=== PATIENT | male | born 1975 | race Caucasian/White ===

== ENCOUNTER → 2017-07-30 | Outpatient (REF) | payer MEDICARE, MEDICAID ==
[2017-07-31 11:16] LABS: HEPATITIS B SURFACE ANTIBODY POSITIVE (POSITIVE)
== END ==
LOC: M LAB REF 17:39
DX: Z11.8 Encounter for screening for other infectious and parasitic diseases (principal)
CPT/HCPCS: 86706

== ENCOUNTER → 2019-01-15 | Outpatient (REF) | payer MEDICARE, MEDICAID | LOC: M LAB REF 12:26 | PROVIDERS: ATTEND Internal Medicine | DX: E07.9 Disorder of thyroid, unspecified (principal) ==

== ENCOUNTER → 2020-01-07 | Outpatient (REF) | payer BC, MEDICARE | LOC: M LAB REF 11:16 | PROVIDERS: ATTEND Internal Medicine | DX: K13.79 Other lesions of oral mucosa (principal) ==

== ENCOUNTER 2023-03-28 08:53 | Day surgery (SDC) | payer OTHER ==
[~2023-03-28] VITALS: Ht 175.3 cm; Wt 109.9 kg
[~2023-03-28 08:53] MED LIST: LIDOCAINE 2% 100MG/5ML SDV (FOR ANES.) As Ordered ONE; NS 1,000 ML IV ONE; QUET300T2 PO; TRAZ-257 PO; propofoL 200 MG/20 ML VIAL As Ordered ONE
[2023-03-28 11:11] VITALS: TEMP 96.8
[2023-03-28 11:30] VITALS: BP 131/71; O2SAT 100
== END 2023-03-28 11:40 | disposition home or self-care (01) ==
LOC: M OPP 08:53
PROVIDERS: ATTEND Internal Medicine Gastroenterology
DX: Z12.11 Encounter for screening for malignant neoplasm of colon (principal); Z80.0 Family history of malignant neoplasm of digestive organs; K63.5 Polyp of colon; K64.8 Other hemorrhoids; Z79.2 Long term (current) use of antibiotics; Z79.899 Other long term (current) drug therapy; Z88.8 Allergy status to other drugs, medicaments and biological substances; Z91.013 Allergy to seafood

== ENCOUNTER → 2023-10-11 | Outpatient (CLI) | payer OTHER ==
[~2023-10-11] MED LIST changes: -LIDOCAINE 2% 100MG/5ML SDV (FOR ANES.) As Ordered ONE; -NS 1,000 ML IV ONE; -propofoL 200 MG/20 ML VIAL As Ordered ONE
== END ==
LOC: M WUC 10:02
PROVIDERS: ATTEND Nurse Practitioner Family
DX: M79.642 Pain in left hand (principal)